=== PATIENT | male | born 1985 | race Caucasian/White ===

== ENCOUNTER → 2017-06-24 07:48 | Emergency (ER) | payer SELFPAY ==
[~2017-06-24 07:48] MED LIST: Ibuprofen TAB* 800 MG PO ONE
--- NOTE | 2017-06-24 09:29 | RAD ---
INDICATION: Left foot injury COMPARISON: None TECHNIQUE: AP, lateral, and oblique views were obtained. FINDINGS: The bony structures, joint spaces, and soft tissues are normal for age. IMPRESSION: NEGATIVE EXAMINATION.
--- NOTE | 2017-06-24 09:30 | ED ---
Lower Extremity - HPI Summary HPI Summary: 31 male presents with complaints of left foot injury and pain that began last night around 11:30pm after stepping and twisting his foot off a curb. Patient states he was unable to sleep last night due to the pain. Describes it as throbbing. Admits to swelling, denies bruising. Pain is on anterior foot crossing from lateral to medial. Denies any other injuries, knee/hip, back or neck pain. Did not hit his head. Patient was able to walk with a limp last night however was unable to walk this morning due to pain. Walking, touch and movement make pain worse, rest makes pain better. Has not taken any medications. Denies any PMHx. No other complaints at this time. - History of Current Complaint Chief Complaint: EDExtremityLower Stated Complaint: LT FOOT PAIN Time Seen by Provider: 06/24/17 08:47 Hx Obtained From: Patient Mechanism Of Injury: Twisted - on a curb when stepping down Onset of Pain: Immediate Onset/Duration: Hours - since 11:30pm last night 06/23/17 Severity Initially: Mild Severity Currently: Moderate Pain Intensity: 9 Pain Scale Used: 0-10 Numeric Timing: Constant Location: Is Discrete @ - anterior left foot Character Of Pain: Sharp, Aching, Throbbing Associated Signs And Symptoms: Positive: Swelling Aggravating Factor(s): Standing, Ambulation, Movement, Weight Bearing Alleviating Factor(s): Rest Able to Bear Weight: Yes - but unable to walk and favors right side due to pain - Allergies/Home Medications Allergies/Adverse Reactions: Allergies Allergy/AdvReac Type Severity Reaction Status Date / Time No Known Allergies Allergy Verified 06/24/17 08:51 PMH/Surg Hx/FS Hx/Imm Hx Endocrine/Hematology History: Denies: Hx Diabetes Cardiovascular History: Denies: Hx Hypertension Respiratory History: Denies: Hx Asthma - Surgical History Surgery Procedure, Year, and Place: none - Immunization History Immunizations Up to Date: Yes Infectious Disease History: Yes Infectious Disease History: Denies: Traveled Outside the [place] in Last 30 Days - Family History Known Family History: Positive: None - Social History Occupation: Unemployed Alcohol Use: Rare Substance Use Type: Reports: None Smoking Status (MU): Never Smoked Tobacco Review of Systems Constitutional: Negative Cardiovascular: Negative Respiratory: Negative Gastrointestinal: Negative Positive: Arthralgia, Myalgia, Decreased ROM, Edema - left foot Skin: Negative Positive: Paresthesia - left foot at times All Other Systems Reviewed And Are Negative: Yes Physical Exam Triage Information Reviewed: Yes Vital Signs On Initial Exam: Initial Vitals Temp Pulse Resp BP Pulse Ox 99.1 F 65 16 128/85 99 06/24/17 08:06 06/24/17 08:06 06/24/17 08:06 06/24/17 08:06 06/24/17 08:06 Vital Signs Reviewed: Yes Appearance: Positive: Well-Appearing, Pain Distress - mild with little movement and palpation of left foot Skin: Positive: Warm, Skin Color Reflects Adequate Perfusion, Dry. Negative: Cold, Numb, Cyanosis @, Pale, Erythema @ Head/Face: Positive: Normal Head/Face Inspection Eyes: Positive: EOMI, PRIYANKA, Conjunctiva Clear ENT: Positive: Hearing grossly normal Neck: Positive: Supple, Nontender Respiratory/Lung Sounds: Positive: Clear to Auscultation, Breath Sounds Present. Negative: Rales, Rhonchi, Wheezes Cardiovascular: Positive: Normal, RRR, Pulses are Symmetrical in both Upper and Lower Extremities - 2+ pedal bl. Negative: Murmur, Rub Musculoskeletal: Positive: Strength/ROM Intact - rest of MSK normal, normal ROM of left ankle however causes pain, no tenderness to palpation of left ankle, Limited @ - left foot due to pain, Pain @ - tender to palpation of anterior left foot, middle extending from lateral to medial side across foot., Edema Left - edema noted over anterior middle foot when compared to right, Other - no crepitus, step off, ecchymosis or obvious deformity noted. Negative: Interruption @, Edema Right Neurological: Positive: Normal, Sensory/Motor Intact, Alert, Oriented to Person Place, Time, CN Intact II-III, Reflexes Intact, NV Bundle Intact Distally, Unable to Assess Gait - due to pain and unable to bear weight Psychiatric: Positive: Affect/Mood Appropriate Diagnostics - Vital Signs Vital Signs Temp Pulse Resp BP Pulse Ox 06/24/17 08:14 99.1 F 65 18 128/85 99 06/24/17 08:06 99.1 F 65 16 128/85 99 - Laboratory Lab Statement: Any lab studies that have been ordered have been reviewed, and results considered in the medical decision making process. - Radiology left foot Xray Interpretation: No Acute Changes - NEGATIVE EXAMINATION. Radiology Interpretation Completed By: Radiologist left ankle Xray Interpretation: Positive (See Comments) - NO ACUTE FINDINGS. OSTEOCHONDRAL TYPE INJURY MEDIAL TALAR DOME IS MOST CONSISTENT WITH A REMOTE INJURY. THIS COULD BE FURTHER EVALUATED WITH NONEMERGENT MR IMAGING INDICATED Radiology Interpretation Completed By: Radiologist Lower Extremity Course/Dx - Course Course Of Treatment: x-rays of left foot/ankle obtained. given ibuprofen and ice while in ED. x-rays were negative for acute fracture however did show possible chronic injury that recommended further non emergent imaging. Follow up ortho, given boot, continue NSAID and RICE. Follow up. Aware of worsening signs and symptoms to watch out for. No concern for any other injury or emergent etiology at this time. - Diagnoses Differential Diagnosis/HQI/PQRI: Positive: Contusion, Dislocation, Fracture ( Closed), Sprain, Strain Provider Diagnoses: Sprain of foot, left Discharge - Discharge Plan Condition: Stable Disposition: HOME Patient Education Materials: Foot Sprain (ED) Referrals: Lalit Garcia MD [Medical Doctor] - [facility] [place] [facility] [Outside] Additional Instructions: Take prescribed ibuprofen as directed for the next couple of days. Take with food to avoid upset stomach. Wear cam boot until symptoms improve. Rest, ice and elevate. Try to avoid bearing weight and overuse. Follow up and make an appointment with Ortho and primary care provider, for further evaluation and imaging. If symptoms worsen, new symptoms develop or persist please return and seek medical attention.
--- NOTE | 2017-06-24 09:30 | RAD ---
INDICATION: Left ankle injury COMPARISON: None TECHNIQUE: AP, lateral, and oblique views were obtained. FINDINGS: There are no acute bony findings. There is an osteochondral defect in the medial talar dome, however. There may be a small loose fragment. There is sclerosis about the defect suggesting some degree of chronicity. There are no other focal osseous findings. The ankle joint space is otherwise preserved. The soft tissues are normal. IMPRESSION: NO ACUTE FINDINGS. OSTEOCHONDRAL TYPE INJURY MEDIAL TALAR DOME IS MOST CONSISTENT WITH A REMOTE INJURY. THIS COULD BE FURTHER EVALUATED WITH NONEMERGENT MR IMAGING INDICATED
[2017-06-24 10:47] VITALS: BP 120/72
== END | disposition home or self-care (01) ==
LOC: ED 07:48
DX: S93.602A Unspecified sprain of left foot, initial encounter (principal); Y99.9 Unspecified external cause status; Y92.9 Unspecified place or not applicable; Y93.89 Activity, other specified; X50.9XXA Other and unspecified overexertion or strenuous movements or postures, initial encounter; R20.9 Unspecified disturbances of skin sensation
CPT/HCPCS: 99282; A9270-GY